=== PATIENT | male | born 1995 | race African-American/Black ===

== ENCOUNTER 2024-04-08 17:17 | Emergency (ER) | payer OTHER ==
[2024-04-08 17:28] VITALS: RESP 18; TEMP 98.6; BMI 32.5
[2024-04-08] MEDS ORDERED: KETOROLAC TROMETHAMINE 30 MG/1 ML VIAL ONE (19:33)
[2024-04-08] MEDS: KETOROLAC TROMETHAMINE 30 MG/1 ML VIAL IM ONE (19:35)
[2024-04-08] MEDS ORDERED: AMOXICILLIN 250 MG CAPSULE ONE (20:05)
[2024-04-08] MEDS ORDERED: ACETAMINOPHEN WITH CODEINE 300MG/30MG TABLET ONE (20:06)
[2024-04-08] MEDS: ACETAMINOPHEN WITH CODEINE 300MG/30MG TABLET PO ONE (20:10)
[2024-04-08] MEDS: AMOXICILLIN 500 MG CAPSULE (FP) PO ONE (20:10)
[2024-04-08 20:15] VITALS: BP 140/91; PULSE 72
== END 2024-04-08 20:15 | disposition home or self-care (01) ==
LOC: JERFT 17:17
PROC: 3E0233Z Introduction of Anti-inflammatory into Muscle, Percutaneous Approach (ICD-10-PCS; principal; 2024-04-08)
DX: R22.0 Localized swelling, mass and lump, head (principal); K08.89 Other specified disorders of teeth and supporting structures
CPT/HCPCS: 96372; 99284-25